=== PATIENT | male | born 1970 | race Caucasian/White ===

== ENCOUNTER 2019-08-05 12:14 | Emergency (ER) | payer BC ==
[2019-08-05] MEDS ORDERED: Morphine 4 MG/ML VIAL ONE ×2 (13:42→15:05)
--- NOTE | 2019-08-05 13:54 | RAD ---
EXAM: Right hip 2 views: HISTORY: Joint pain, injury COMPARISON: None FINDINGS: Very severe right hip joint arthrosis with joint space narrowing and hypertrophic osteophytosis and s clerosis and eburnation without acute fracture or dislocation. IMPRESSION: No significant acute process. Severe right hip joint arthrosis.
[2019-08-05] MEDS ORDERED: Morphine 2 MG/ML SYRINGE ONE (15:03)
[2019-08-05] MEDS ORDERED: Ketorolac Tromethamine 60 MG/2 ML VIAL ONE (15:04)
== END 2019-08-05 17:05 | disposition home or self-care (01) ==
LOC: ERS 12:14
DX: M54.42 Lumbago with sciatica, left side (principal)
CPT/HCPCS: 96372; J1885; J2270